=== PATIENT | female | born 1975 | race Caucasian/White ===

== ENCOUNTER 2019-07-13 00:40 | Emergency (ER) | payer SELFPAY ==
[~2019-07-13] VITALS: Ht 170.2 cm; Wt 100.0 kg
[2019-07-13] MEDS ORDERED: IBUPROFEN 600MG TABLET PO ONE (03:00)
[2019-07-13 03:44] VITALS: BP 128/75
== END 2019-07-13 03:54 | disposition left against medical advice (07) ==
LOC: ER 00:40
DX: M25.571 Pain in right ankle and joints of right foot (principal); Z59.0 Homelessness
CPT/HCPCS: 73610; 73630; 99283

== ENCOUNTER 2019-07-16 16:17 | Emergency (ER) | payer SELFPAY ==
[~2019-07-16] VITALS: Ht 170.2 cm; Wt 91.0 kg
[2019-07-16 16:28] VITALS: BP 104/50
== END 2019-07-17 00:54 | disposition left against medical advice (07) ==
LOC: ER 16:17
DX: R21 Rash and other nonspecific skin eruption (principal); Z53.21 Procedure and treatment not carried out due to patient leaving prior to being seen by health care provider